=== PATIENT | female | born 1995 | race Caucasian/White ===

== ENCOUNTER 2017-09-17 04:41 | Emergency (ER) | payer OTHER ==
[~2017-09-17] VITALS: Ht 149.9 cm; Wt 58.1 kg
[2017-09-17 05:20] LABS: CHLORIDE 104 mEq/L (99-109); POTASSIUM 4.2 mEq/L (3.7-5.4); SODIUM 136 mEq/L (136-147)
[2017-09-17 05:22] LABS: GLUCOSE 132 mg/dL (70-99)
[2017-09-17 05:23] LABS: ANION GAP 10 MEQ/L (2-14)
[2017-09-17 05:24] LABS: TOTAL BILIRUBIN 0.4 mg/dL (0.0-1.0)
[2017-09-17 05:26] LABS: ALKALINE PHOSPHATASE 68 IU/L (3-129)
[2017-09-17 05:27] LABS: UREA NITROGEN (BUN) 18 mg/dL (9-23)
[2017-09-17 05:28] LABS: DIRECT BILIRUBIN 0.2 mg/dL (0.0-0.3)
[2017-09-17 05:29] LABS: LIPASE 33 U/L (1.0-51.0)
[2017-09-17 05:30] LABS: TROP-I INTERPRETATION NEGATIVE; TROPONIN-I < 0.01 ng/mL (0.0-0.30)
[2017-09-17 05:33] LABS: GFR ESTIMATE (CALCULATED) > 59 mL/min/
[2017-09-17 05:34] LABS: BASOPHIL COUNT 0.1 K/uL (0-0.1); EOSINOPHIL (%) 1.8 % (0-5); EOSINOPHIL COUNT 0.2 K/uL (0-0.3); HEMATOCRIT 33.6 % (36.0-46.0); IMMATURE GRANULOCYTE (%) 0.4 % (0.0-0.7); INSTRUMENT ABS NEUTROPHIL CT 5.6 K/uL; LYMPHOCYTE COUNT 1.8 K/uL (1.0-2.8); MCH 30.8 PG (29.0-34.0); MCHC 33.9 G/DL (30.0-36.0); MCV 90.8 FL (83-99); MEAN PLAT.VOLUME 10.7 uM^3 (9.5-12.4); MONOCYTE (%) 8.1 % (3-12); MONOCYTE COUNT 0.7 K/uL (0-0.8); NEUTROPHIL (%) 67.6 % (45-76); NEUTROPHIL COUNT 5.6 K/uL (1.8-6.4); PLATELET COUNT 207 K/uL (156-360); RBC DIS.WIDTH-CV 11.2 % (11.8-14.6); RBC DIS.WIDTH-SD 37.1 % (39-53); WHITE BLOOD COUNT 8.3 K/uL (4.1-10.2)
[2017-09-17 05:35] LABS: QUANTITATIVE HCG < 4.0 MIU/ML
[2017-09-17 06:16] LABS: ADD MIUA? YES; BILIRUBIN NEGATIVE; BLOOD NEGATIVE; COLOR YELLOW ((YELLOW)); GLUCOSE (STRIP) NEGATIVE; INTERNAL CONTROL VALID? YES; KETONES NEGATIVE; LEUKOCYTES LARGE; NITRITE NEGATIVE; PROTEIN (STRIP) NEGATIVE; SPECIFIC GRAVITY 1.008 (1.000-1.030); UROBILINOGEN 0.2 MG/DL (0.2-1.0)
[2017-09-17 06:21] LABS: BACTERIA RARE /HPF; EPITHELIAL CELLS 1+ /HPF; MUCUS TRACE /LPF; UCUL ADDED? YES; WHITE BLOOD CELLS 20-30 /HPF (0-5)
[2017-09-17] MEDS ORDERED: CIPRO500 MG PO (07:06)
[2017-09-17 07:26] VITALS: BP 111/64
== END 2017-09-17 07:26 | disposition home or self-care (01) ==
LOC: EME 04:41 → EDBD 04:41 → EME 07:26
PROVIDERS: Emergency Medicine
DX: R55 Syncope and collapse (principal); R11.10 Vomiting, unspecified; N39.0 Urinary tract infection, site not specified
CPT/HCPCS: 80048; 80076; 81003; 83690; 84484; 84702; 84703; 85025; 87086; 93005; 99281; 99284; J7030